=== PATIENT | female | born 1975 | race African-American/Black ===

== ENCOUNTER 2023-10-09 09:22 | Outpatient (CLI) | payer MEDICARE | END 2023-10-09 09:23 | disposition home or self-care (01) | LOC: CSHWCC 09:22 | PROVIDERS: ATTEND Nurse Practitioner Family | DX: L89.510 Pressure ulcer of right ankle, unstageable (principal); E11.621 Type 2 diabetes mellitus with foot ulcer; L97.415 Non-pressure chronic ulcer of right heel and midfoot with muscle involvement without evidence of necrosis | CPT/HCPCS: 11042; G0463; 99213 ==

== ENCOUNTER 2023-10-16 10:13 | Outpatient (CLI) | payer MEDICARE | END 2023-10-16 10:14 | disposition home or self-care (01) | LOC: CSHWCC 10:13 | PROVIDERS: ATTEND Nurse Practitioner Family | DX: E11.621 Type 2 diabetes mellitus with foot ulcer (principal); L97.415 Non-pressure chronic ulcer of right heel and midfoot with muscle involvement without evidence of necrosis; L89.510 Pressure ulcer of right ankle, unstageable | CPT/HCPCS: 11042 ==

== ENCOUNTER 2023-11-13 17:06 | Outpatient (CLI) | payer MEDICARE | END 2023-11-13 17:07 | disposition home or self-care (01) | LOC: CSHWCC 17:06 | PROVIDERS: ATTEND Nurse Practitioner Family | DX: E11.621 Type 2 diabetes mellitus with foot ulcer (principal); L89.513 Pressure ulcer of right ankle, stage 3 | CPT/HCPCS: 11042 ==

== ENCOUNTER 2024-01-29 11:08 | Outpatient (CLI) | payer MEDICARE | END 2024-01-29 11:09 | disposition home or self-care (01) | LOC: CSHWCC 11:08 | PROVIDERS: ATTEND Nurse Practitioner Family | DX: L89.513 Pressure ulcer of right ankle, stage 3 (principal); E11.621 Type 2 diabetes mellitus with foot ulcer; L97.509 Non-pressure chronic ulcer of other part of unspecified foot with unspecified severity; I73.9 Peripheral vascular disease, unspecified | CPT/HCPCS: 97597 ==

== ENCOUNTER 2024-02-28 10:51 | Outpatient (CLI) | payer MEDICARE | END 2024-02-28 10:52 | disposition home or self-care (01) | LOC: CSHWCC 10:51 | PROVIDERS: ATTEND Nurse Practitioner Family | DX: L89.513 Pressure ulcer of right ankle, stage 3 (principal); E11.621 Type 2 diabetes mellitus with foot ulcer; L97.509 Non-pressure chronic ulcer of other part of unspecified foot with unspecified severity; E11.59 Type 2 diabetes mellitus with other circulatory complications | CPT/HCPCS: 97597 ==

== ENCOUNTER 2024-05-13 08:41 | Outpatient (CLI) | payer MEDICARE, OTHER | END 2024-05-13 08:42 | disposition home or self-care (01) | LOC: CSHWCC 08:41 | PROVIDERS: ATTEND Nurse Practitioner Family | DX: L89.513 Pressure ulcer of right ankle, stage 3 (principal); E11.621 Type 2 diabetes mellitus with foot ulcer; I73.9 Peripheral vascular disease, unspecified; L97.509 Non-pressure chronic ulcer of other part of unspecified foot with unspecified severity | CPT/HCPCS: 97597 ==

== ENCOUNTER 2024-05-22 08:56 | Outpatient (CLI) | payer MEDICARE, OTHER | END 2024-05-22 08:57 | disposition home or self-care (01) | LOC: CSHWCC 08:56 | PROVIDERS: ATTEND Nurse Practitioner Family | DX: L89.513 Pressure ulcer of right ankle, stage 3 (principal); E11.621 Type 2 diabetes mellitus with foot ulcer; L97.509 Non-pressure chronic ulcer of other part of unspecified foot with unspecified severity; E11.51 Type 2 diabetes mellitus with diabetic peripheral angiopathy without gangrene | CPT/HCPCS: 11042; 87070; 87205 ==

== ENCOUNTER 2024-06-23 08:59 | Outpatient (CLI) | payer MEDICARE, OTHER | END 2024-06-23 09:00 | disposition home or self-care (01) | LOC: CSHWCC 08:59 | PROVIDERS: ATTEND Nurse Practitioner Family | DX: E11.621 Type 2 diabetes mellitus with foot ulcer (principal); L89.513 Pressure ulcer of right ankle, stage 3; E11.51 Type 2 diabetes mellitus with diabetic peripheral angiopathy without gangrene; I73.9 Peripheral vascular disease, unspecified | CPT/HCPCS: 97597; G0463; 99212 ==

== ENCOUNTER 2024-07-07 09:47 | Outpatient (CLI) | payer MEDICARE, OTHER | END 2024-07-07 09:48 | disposition home or self-care (01) | LOC: CSHWCC 09:47 | PROVIDERS: ATTEND Nurse Practitioner Family | DX: E11.621 Type 2 diabetes mellitus with foot ulcer (principal); L89.513 Pressure ulcer of right ankle, stage 3; E11.51 Type 2 diabetes mellitus with diabetic peripheral angiopathy without gangrene; I73.9 Peripheral vascular disease, unspecified | CPT/HCPCS: 99212; G0463 ==

== ENCOUNTER 2024-07-21 09:53 | Outpatient (CLI) | payer MEDICARE, OTHER | END 2024-07-21 09:54 | disposition home or self-care (01) | LOC: CSHWCC 09:53 | PROVIDERS: ATTEND Nurse Practitioner Family | DX: L89.513 Pressure ulcer of right ankle, stage 3 (principal); E11.621 Type 2 diabetes mellitus with foot ulcer; L97.509 Non-pressure chronic ulcer of other part of unspecified foot with unspecified severity; E11.59 Type 2 diabetes mellitus with other circulatory complications | CPT/HCPCS: 87070; 87205; 97597; G0463; 99212 ==

== ENCOUNTER 2024-08-04 08:41 | Outpatient (CLI) | payer MEDICARE, OTHER | END 2024-08-04 08:42 | disposition home or self-care (01) | LOC: CSHWCC 08:41 | PROVIDERS: ATTEND Nurse Practitioner Family | DX: L89.513 Pressure ulcer of right ankle, stage 3 (principal); E11.621 Type 2 diabetes mellitus with foot ulcer; E11.51 Type 2 diabetes mellitus with diabetic peripheral angiopathy without gangrene; L97.509 Non-pressure chronic ulcer of other part of unspecified foot with unspecified severity | CPT/HCPCS: 99212; G0463 ==

== ENCOUNTER 2024-08-13 09:38 | Outpatient (CLI) | payer MEDICARE, OTHER | END 2024-08-13 09:39 | disposition home or self-care (01) | LOC: CSHWCC 09:38 | PROVIDERS: ATTEND Nurse Practitioner Family | DX: E11.621 Type 2 diabetes mellitus with foot ulcer (principal); L89.513 Pressure ulcer of right ankle, stage 3; E11.51 Type 2 diabetes mellitus with diabetic peripheral angiopathy without gangrene; I73.9 Peripheral vascular disease, unspecified | CPT/HCPCS: 87070; 87205 ==

== ENCOUNTER 2024-08-25 08:30 | Outpatient (CLI) | payer MEDICARE, OTHER | END 2024-08-25 08:31 | disposition home or self-care (01) | LOC: CSHWCC 08:30 | PROVIDERS: ATTEND Nurse Practitioner Family | DX: L89.513 Pressure ulcer of right ankle, stage 3 (principal); E11.621 Type 2 diabetes mellitus with foot ulcer; L97.509 Non-pressure chronic ulcer of other part of unspecified foot with unspecified severity; E11.51 Type 2 diabetes mellitus with diabetic peripheral angiopathy without gangrene | CPT/HCPCS: 99213; G0463 ==

== ENCOUNTER 2024-09-01 10:21 | Outpatient (CLI) | payer MEDICARE, OTHER | END 2024-09-01 10:22 | disposition home or self-care (01) | LOC: CSHWCC 10:21 | PROVIDERS: ATTEND Nurse Practitioner Family | DX: L89.513 Pressure ulcer of right ankle, stage 3 (principal); E11.621 Type 2 diabetes mellitus with foot ulcer; L97.509 Non-pressure chronic ulcer of other part of unspecified foot with unspecified severity; E11.59 Type 2 diabetes mellitus with other circulatory complications | CPT/HCPCS: 97597 ==

== ENCOUNTER 2024-09-07 11:57 | Outpatient (CLI) | payer MEDICARE, OTHER | END 2024-09-07 11:58 | disposition home or self-care (01) | LOC: CSHWCC 11:57 | PROVIDERS: ATTEND Nurse Practitioner Family | DX: E11.621 Type 2 diabetes mellitus with foot ulcer (principal); L89.513 Pressure ulcer of right ankle, stage 3; E11.51 Type 2 diabetes mellitus with diabetic peripheral angiopathy without gangrene; I73.9 Peripheral vascular disease, unspecified | CPT/HCPCS: 11042 ==

== ENCOUNTER 2024-09-22 14:04 | Outpatient (CLI) | payer MEDICARE, OTHER | END 2024-09-22 14:05 | disposition home or self-care (01) | LOC: CSHWCC 14:04 | PROVIDERS: ATTEND Nurse Practitioner Family | DX: L89.513 Pressure ulcer of right ankle, stage 3 (principal); E11.621 Type 2 diabetes mellitus with foot ulcer; L97.509 Non-pressure chronic ulcer of other part of unspecified foot with unspecified severity; E11.59 Type 2 diabetes mellitus with other circulatory complications | CPT/HCPCS: 11042 ==

== ENCOUNTER 2024-09-29 09:32 | Outpatient (CLI) | payer MEDICARE, OTHER | END 2024-09-29 09:33 | disposition home or self-care (01) | LOC: CSHWCC 09:32 | PROVIDERS: ATTEND Nurse Practitioner Family | DX: L89.513 Pressure ulcer of right ankle, stage 3 (principal); E11.621 Type 2 diabetes mellitus with foot ulcer; L97.509 Non-pressure chronic ulcer of other part of unspecified foot with unspecified severity; E11.59 Type 2 diabetes mellitus with other circulatory complications | CPT/HCPCS: 97597 ==

== ENCOUNTER 2025-06-29 09:00 | Outpatient (CLI) | payer OTHER | END 2025-06-29 09:01 | disposition home or self-care (01) | LOC: CSHWCC 09:00 | PROVIDERS: ATTEND Nurse Practitioner Family | DX: L89.513 Pressure ulcer of right ankle, stage 3 (principal); E11.621 Type 2 diabetes mellitus with foot ulcer; L97.409 Non-pressure chronic ulcer of unspecified heel and midfoot with unspecified severity; E11.51 Type 2 diabetes mellitus with diabetic peripheral angiopathy without gangrene | CPT/HCPCS: 11042; 99214; G0463 ==

== ENCOUNTER 2025-07-06 09:26 | Outpatient (CLI) | payer OTHER | END 2025-07-06 09:27 | disposition home or self-care (01) | LOC: CSHWCC 09:26 | PROVIDERS: ATTEND Nurse Practitioner Family | DX: L89.513 Pressure ulcer of right ankle, stage 3 (principal); E11.621 Type 2 diabetes mellitus with foot ulcer; L97.509 Non-pressure chronic ulcer of other part of unspecified foot with unspecified severity; E11.51 Type 2 diabetes mellitus with diabetic peripheral angiopathy without gangrene | CPT/HCPCS: 11042; 99213; G0463 ==